=== PATIENT | male | born 1995 | race Caucasian/White ===

== ENCOUNTER 2018-03-02 11:03 | Day surgery (SDC) | payer OTHER ==
[~2018-03-02 11:03] MED LIST: CEFAZOLIN 2 GM/D5W RTU 2 GM/50 ML RTUPB IV PRN; DEXAMETHASONE SOD PHOSPHATE INJ 4 MG/1 ML VIAL ONE; ONDANSETRON HCL INJ/PF 4 MG/2 ML SDV ONE
[2018-03-02] MEDS ORDERED: CEFAZOLIN 2 GM/D5W RTU 2 GM/50 ML RTUPB IV ONE (11:23)
[2018-03-02 11:58] LABS: HEMOGLOBIN 14.6 g/dL (13.5-17.0); MEAN CORPUSCULAR HEMOGLOBIN 30.2 pg (27.0-33.4); MEAN CORPUSCULAR HGB CONC 34.8 g/dL (32.0-36.0); MEAN CORPUSCULAR VOLUME 87 fl (80-97); PLATELET COUNT 257 10^3/uL (150-450); RED BLOOD COUNT 4.85 10^6/uL (4.35-5.55); RED CELL DISTRIBUTION WIDTH 13.1 % (11.5-14.0); WHITE BLOOD COUNT 7.1 10^3/uL (4.0-10.5)
[2018-03-02] MEDS ORDERED: MIDAZOLAM 2 MG/2 ML INJ ONE ×2 (12:05→12:20)
[2018-03-02 12:20] LABS: ANION GAP 8 (5-19); BLOOD UREA NITROGEN 14 mg/dL (7-20); CALCIUM 9.5 mg/dL (8.4-10.2); CARBON DIOXIDE 28 mmol/L (22-30); CHLORIDE 107 mmol/L (98-107); GLUCOSE 99 mg/dL (75-110); POTASSIUM 4.6 mmol/L (3.6-5.0); SODIUM 143.4 mmol/L (137-145)
[2018-03-02] MEDS ORDERED: ACETAMINOPHEN 1,000 MG/100 ML RTUPB IV ONE (12:20)
[2018-03-02] MEDS ORDERED: PROPOFOL INJ 200 MG/20 ML VIAL IV ONE (12:20)
[2018-03-02] MEDS ORDERED: BUPIVACAINE HCL 0.5 % INJ/PF 30 ML SDV ONE (12:20)
[2018-03-02] MEDS ORDERED: ALBUTEROL SULFATE 0.083% NEB 2.5 MG/3 ML AMPUL NEB ONE ×2 (12:20→12:23)
[2018-03-02] MEDS ORDERED: FENTANYL CITRATE INJ/PF 100 MCG/2 ML AMPUL ONE (12:20)
[2018-03-02] MEDS ORDERED: BUPIVACAINE HCL 0.5 % INJ/PF 30 ML SDV INJ ONE ×2 (13:31)
[2018-03-02] MEDS ORDERED: MORPHINE SULFATE 10 MG/ML INJ IV PRN (14:05)
[2018-03-02] MEDS ORDERED: DIPHENHYDRAMINE HCL 50 MG/ML VIAL IV PRN (14:05)
[2018-03-02] MEDS ORDERED: PROMETHAZINE HCL INJ 25 MG/1 ML VIAL IV PRN ×2 (14:05)
[2018-03-02] MEDS ORDERED: MEPERIDINE HCL/PF INJ 25 MG/1 ML DISP.SYRIN IV PRN (14:05)
[2018-03-02] MEDS ORDERED: FENTANYL CITRATE INJ/PF 100 MCG/2 ML AMPUL IV PRN ×3 (14:05)
[2018-03-02] MEDS ORDERED: HYDROMORPHONE HCL INJ/PF 2 MG/ML AMPULE ONE (14:42)
[2018-03-02] MEDS ORDERED: METOCLOPRAMIDE HCL INJ/PF 10 MG/2 ML SDV ONE (16:04)
--- NOTE | 2018-03-02 16:09 | RADIOLOGY REPORT (SQ) ---
EXAM DESCRIPTION: WRIST RIGHT 3 VIEWS COMPLETED DATE/TIME: 03/02/2018 3:36 pm REASON FOR STUDY: RT SCAPHOID EXCISION S63.031A SUBLUXATION OF MIDCARPAL JOINT OF RIGHT WRIST, INIT COMPARISON: None. FLUOROSCOPY TIME: 6 seconds 3 digital C-arm images saved to PACS. TECHNIQUE: Intra-operative images acquired during surgical procedure to evaluate progress. NUMBER OF IMAGES: 3 digital C-arm images LIMITATIONS: None. FINDINGS: Intra procedural imaging and fluoro during resection of the right scaphoid bone. Fusion h ardware at the lunate-capitate joint IMPRESSION: Intra procedural imaging and fluoro COMMENT: Quality ID 145: Final reports for procedures using fluoroscopy that document radiation exp osure indices, or exposure time and number of fluorographic images (if radiation exposure indices are not available) Please consult full operative report of the attending physician for description of the procedure. TECHNICAL DOCUMENTATION: JOB ID: [id number] [employer]- All Rights Reserved Reading location - IP/workstation name: [email or web address]
--- NOTE | 2018-03-02 16:14 | RADIOLOGY REPORT (SQ) ---
EXAM DESCRIPTION: NO CHG FLUORO COMPLETE DATE/TIME: 03/02/2018 3:36 pm REASON FOR STUDY: RT SCAPHOID EXCISION S63.031A SUBLUXATION OF MIDCARPAL JOINT OF RIGHT WRIST, INIT FINDINGS: Please see combined report for performance of procedure and radiologic supervision and int erpretation. IMPRESSION: Please see combined report for performance of procedure and radiologic supervision and i nterpretation. Reading location - IP/workstation name: [email or web address]
[2018-03-02] MEDS ORDERED: OXYCODONE-ACETAMINOPHEN 5-325 MG TABLET PO PRN (16:33)
[2018-03-02] MEDS ORDERED: ONDANSETRON HCL INJ/PF 4 MG/2 ML SDV IV PRN (16:35)
[2018-03-02] MEDS ORDERED: OXYCODONE-ACETAMINOPHEN 5-325 MG TABLET ONE (16:37)
[2018-03-02 18:45] VITALS: BP 125/79
--- NOTE | 2018-03-02 21:27 | OPERATIVE REPORT E ---
Operative Report NAME: AMBAR HERNANDEZ : 1995 AGE: 22Y DATE OF SURGERY: 03/02/2018 ROOM: PREOPERATIVE DIAGNOSIS: RIGHT WRIST MIDCARPAL INSTABILITY. POSTOPERATIVE DIAGNOSIS: RIGHT WRIST MIDCARPAL INSTABILITY. OPERATION: 1. Right wrist midcarpal fusion with autogenous bone graft. 2. Posterior intraosseous nerve neurectomy. SURGEON: AMARILYS SEPULVEDA M.D. ANESTHESIA: General. BLOOD LOSS: Minimal. COMPLICATIONS: None. INDICATIONS: The patient is a 22-year-old man with midcarpal instability. He has failed nonoperative treatment. PROCEDURE: Following the induction of a general anesthetic and administration of antibiotics, the patient was positioned supine on the operating room table. Bony prominences were padded. A tourniquet was placed proximally on the right arm, but not inflated. The right upper extremity was sterilely prepped with Chloraprep and draped in standard fashion. The arm was exsanguinated and tourniquet inflated to 100 mm above systolic pressure. A midline longitudinal incision was made on the dorsum of the wrist. A sharp incision was performed through skin, blunt dissection was performed through the subcutaneous tissue. Care was taken to identify and protect the superficial branching nerves. The extensor retinaculum was opened to the third dorsal extensor compartment and the extensor pollicis longus was retracted radially. The fourth dorsal extensor compartment was opened and tendons retracted ulnarly. The wrist capsule was opened longitudinally. A PIN neurectomy was performed with removal of a few centimeters of the PIN nerve. Capsule was elevated radially and ulnarly. Scaphoid was detached and removed bone between the lunate and capitate. All cartilage was decorticated with a combination of rongeurs and osteotomes. Bone graft was harvested from the distal radius. The carpal bones were aligned and transfixed with Mikey wires. Bone graft was packed throughout the capitolunate joint. Fusion fixation was performed with BME felisha. Two felisha were placed from the lunate to the capitate achieving excellent compression. Image intensification was brought in which confirmed correct placement of the implants as well as correct alignment of the carpal bones. The wound was irrigated. The capsule was reapproximated side to side with 2-0 Vicryl. The extensor retinaculum was closed side to side with 2-0 Vicryl. The extensor pollicis longus was left out of the retinaculum. Additional irrigation was performed. The subcutaneous tissue and skin were closed with 3-0 Monocryl using a subcuticular technique. Steri-Strips were applied. Marcaine 0.25% was injected for postoperative analgesia and a volar splint was applied. The patient tolerated the procedure well without complications, and was brought to the recovery room in stable condition. DICTATING PHYSICIAN: AMARILYS SEPULVEDA M.D. [id number] [facility]#: [id number] ID: [id number] JOB#: [id number] ACCT: [id number] cc:AMARILYS SEPULVEDA M.D. >
== END 2018-03-02 18:03 | disposition home or self-care (01) ==
LOC: OROUT 11:03
PROVIDERS: ATTEND Orthopaedic Surgery
DX: S63.03 Subluxation and dislocation of midcarpal joint (principal); W19.XXXA Unspecified fall, initial encounter; Y92.69 Other specified industrial and construction area as the place of occurrence of the external cause; Y99.1 Military activity; F17.210 Nicotine dependence, cigarettes, uncomplicated
CPT/HCPCS: 64772; 36415; 85027; 80048; 73110; 25825; C1713 ×3; J2250; J3490; J1100; J3010; J2765; J1170; J2405; J2704; J0690; J0131; 01830

== ENCOUNTER 2018-11-09 07:10 | Day surgery (SDC) | payer OTHER ==
[~2018-11-09 07:10] MED LIST changes: -CEFAZOLIN 2 GM/D5W RTU 2 GM/50 ML RTUPB IV PRN; +CEFAZOLIN SODIUM 2 GM in DEXTROSE 5%-WATER 100 ML IV PRN; -DEXAMETHASONE SOD PHOSPHATE INJ 4 MG/1 ML VIAL ONE; -ONDANSETRON HCL INJ/PF 4 MG/2 ML SDV ONE
[2018-11-09] MEDS ORDERED: MIDAZOLAM 2 MG/2 ML INJ ONE (07:55)
[2018-11-09] MEDS ORDERED: PROPOFOL INJ 200 MG/20 ML VIAL IV ONE (07:56)
[2018-11-09] MEDS ORDERED: HYDROMORPHONE HCL INJ/PF 2 MG/ML AMPULE ONE (07:56)
[2018-11-09] MEDS ORDERED: BUPIVACAINE HCL 0.5 % INJ/PF 30 ML SDV ONE (08:18)
[2018-11-09] MEDS ORDERED: OXYCODONE-ACETAMINOPHEN 5-325 MG TABLET PO PRN ×3 (09:41→12:23)
[2018-11-09] MEDS ORDERED: MEPERIDINE HCL/PF INJ 25 MG/1 ML DISP.SYRIN IV PRN (09:41)
[2018-11-09] MEDS ORDERED: ONDANSETRON HCL INJ/PF 4 MG/2 ML SDV IV PRN ×2 (09:41→12:23)
[2018-11-09] MEDS ORDERED: FENTANYL CITRATE INJ/PF 100 MCG/2 ML AMPUL IV PRN ×3 (09:41)
[2018-11-09] MEDS ORDERED: PROMETHAZINE HCL INJ 25 MG/1 ML VIAL IV PRN ×2 (09:41)
[2018-11-09] MEDS ORDERED: DIPHENHYDRAMINE HCL 50 MG/ML VIAL IV PRN (09:41)
--- NOTE | 2018-11-09 10:39 | RADIOLOGY REPORT (SQ) ---
EXAM DESCRIPTION: NO CHG FLUORO COMPLETE DATE/TIME: 11/09/2018 10:28 am REASON FOR STUDY: HARDWARE REMOVAL OF RT WRIST S63.031D SUBLUXATION OF MIDCARPAL JOINT OF RIGHT WRI ST, SUBS FINDINGS: Please see combined report for performance of procedure and radiologic supervision and int erpretation. IMPRESSION: Please see combined report for performance of procedure and radiologic supervision and i nterpretation. Reading location - IP/workstation name: [email or web address]
--- NOTE | 2018-11-09 10:39 | RADIOLOGY REPORT (SQ) ---
EXAM DESCRIPTION: WRIST RIGHT 3 VIEWS COMPLETED DATE/TIME: 11/09/2018 10:28 am REASON FOR STUDY: HARDWARE REMOVAL OF RT WRIST S63.031D SUBLUXATION OF MIDCARPAL JOINT OF RIGHT WRI ST, SUBS COMPARISON: 03/02/2018 FLUOROSCOPY TIME: 5 seconds Spot images saved to PACS. TECHNIQUE: Intra-operative images acquired during surgical procedure to evaluate progress. NUMBER OF IMAGES: 5 LIMITATIONS: None. FINDINGS: Fluoroscopy was provided for intraoperative procedure. Please refer to the operative repo rt for further discussion. IMPRESSION: IMAGE(S) OBTAINED DURING PROCEDURE. COMMENT: Quality ID 145: Final reports for procedures using fluoroscopy that document radiation exp osure indices, or exposure time and number of fluorographic images (if radiation exposure indices are not available) Please consult full operative report of the attending physician for description of the procedure. TECHNICAL DOCUMENTATION: JOB ID: [id number] [employer]- All Rights Reserved Reading location - IP/workstation name: [email or web address]
--- NOTE | 2018-11-09 10:48 | Operative Report ---
Operative Report DATE OF SURGERY: 11/09/18 PREOPERATIVE DIAGNOSIS: right wrist contracture POSTOPERATIVE DIAGNOSIS: same OPERATION: 1. right wrist removal of hardware. 2. right wrist capsulectomy SURGEON: AMARILSY SEPULVEDA ANESTHESIA: GA COMPLICATIONS: none ESTIMATED BLOOD LOSS: minimal PROCEDURE: Indications for procedure: Patient is a 23 year old man who underwent partial fusion of the right wrist. Despite therapy he has not regained wrist extension. Radiographs demonstrate possible hardware impingement. Description of procedure: Following the induction of general anesthesia the patient was positioned supine on the operating room table. All bony prominences were padded. 2 g of Ancef were administered. The right upper extremity was sterilely prepped with ChloraPrep and draped in standard fashion. Previous dorsal incision was made. Sharp incision was performed through skin with blunt dissection to the subcutaneous tissue. Care was taken to identify and protect branching nerves and veins. Extensor tendons were identified, mobilized, and protected. Wrist capsule was opened longitudinally. There was an abundance of scar tissue noted at the level of the radiocarpal joint. Capsulectomy was performed. Scar tissue was excised sharply with a 15 blade and rongeur. Wrist was extended which confirmed impingement of the fusion felisha. Both suffusion felisha were then removed. The patient was able to achieve obtain full wrist extension passively. Image intensification was used which confirmed complete removal of hardware and consolidation of the fusion. The wound was copiously irrigated. The wrist capsule was left open. Extensor retinaculum was closed over the extensor tendons with the EPL tendon left outside the sheath. Subcutaneous tissue was repaired with 2-0 Vicryl. Skin was reapproximated with 3-0 Monocryl suture using a subcuticular technique. Steri-Strips were applied. 0.5% Marcaine was injected for postoperative analgesia. A bulky sterile dressing was applied. The patient tolerated the procedure well without complication and was brought to recovery room in stable condition.
[2018-11-09 14:07] VITALS: BP 135/84
[2018-11-09] MEDS ORDERED: ONDANSETRON HCL INJ/PF 4 MG/2 ML SDV ONE (14:46)
[2018-11-09] MEDS ORDERED: SUCCINYLCHOLINE CHLORIDE INJ 200 MG/10 ML VIAL ONE (14:46)
[2018-11-09] MEDS ORDERED: KETOROLAC TROMETHAMINE 60 MG/2 ML SDV ONE (14:46)
[2018-11-09] MEDS ORDERED: DEXAMETHASONE SOD PHOSPHATE INJ 4 MG/1 ML VIAL ONE (14:46)
[2018-11-09] MEDS ORDERED: LIDOCAINE 2% INJ-PF (20 MG/ML) 2 ML AMPUL ONE (14:46)
[2018-11-09] MEDS ORDERED: METOCLOPRAMIDE HCL INJ/PF 10 MG/2 ML SDV ONE (14:46)
== END 2018-11-09 12:30 | disposition home or self-care (01) ==
LOC: OROUT 07:10
PROVIDERS: ATTEND Orthopaedic Surgery
DX: S63.03 Subluxation and dislocation of midcarpal joint (principal); X58.XXXD Exposure to other specified factors, subsequent encounter; M24.531 Contracture, right wrist; M25.331 Other instability, right wrist
CPT/HCPCS: 73110; 20680; 25320; J2250; J3490 ×2; J0690; J1100; J1885; J2765; J1170; J0330; J2405; J7060; J2704